=== PATIENT | male | born 1990 | race American Indian/Alaskan Native ===

== ENCOUNTER 2018-02-08 03:17 | Emergency (ER) | payer SELFPAY ==
[2018-02-08 04:08] LABS: Hematocrit 46.5 % (35.5-45.6); Hemoglobin 16.2 gm/dl (11.8-15.2); Mean Corpuscular HGB Conc 35 % (32-34); Mean Corpuscular Hemoglobin 32 pg (28-32); Mean Corpuscular Volume 90 fl (84-94); Platelet Count 251 K/mm3 (140-440); Red Blood Count 5.14 M/mm3 (3.65-5.03); Red Cell Distribution Width 14.1 % (13.2-15.2)
[2018-02-08 04:15] LABS: BUN/Creatinine Ratio 11; Blood Urea Nitrogen 10 mg/dL (9-20); Calcium 9.5 mg/dL (8.4-10.2); Hemolysis Index 7
[2018-02-08 04:48] LABS: Bilirubin,Urine NEG (Negative); Blood,Urine NEG (Negative); Color,Urine Amber (Yellow); Mucus,Urine 3+ /HPF
[2018-02-08 04:57] LABS: Amphetamine Screen,Urine PRESUMPTIVE NEGATIVE; Benzodiazepines Screen,Urine PRESUMPTIVE NEGATIVE; Cannabinoid Screen,Urine PRESUMPTIVE NEGATIVE; Cocaine Screen,Urine PRESUMPTIVE NEGATIVE; Methadone Screen,Urine PRESUMPTIVE NEGATIVE
[2018-02-08 05:08] LABS: Opiate Screen,Urine PRESUMPTIVE POSITIVE
[2018-02-08 05:30] LABS: Band Neutrophils # (Manual) 0.7 K/mm3; Basophils % (Manual) 0 % (0.0-1.8); Eosinophils % (Manual) 0 % (0.0-4.3); Total Cells Counted 100
[2018-02-08 05:31] LABS: Platelet Estimate Consistent w Auto; RBC Morphology Normal
[2018-02-08] MEDS ORDERED: NORCO 10/325 PO ONE (07:03)
--- NOTE | 2018-02-08 07:23 | Emergency Department Report ---
HPI - General Chief Complaint: Sore Throat Time Seen by Provider: 02/08/18 06:14 - HPI HPI: 27-year-old man complains of one to 2 day history of development of sore throat , with some nasal congestion, minimal feverishness. Headache is global, feels it's pressure and pounding, is quite severe, being 10 out of 10, patient declined immediate L for treatment for his headache during examination. He has not had any known exposures, does not currently work, lives with his mother, and declines any other significant source of fever or illness, including no cough or congestion, no abdominal pain, no skin rash, no difficulty urinating making, and no back pain. His neck is a little bit sore, but he feels like he can move it okay. Patient also has a secondary notation of seeing and hearing voices, and this is been going on for well over a year, but has not told anybody before, because his mother schizophrenic, and he thinks this might be happening to him as well. He has not had any prior mental health evaluation for schizophrenia, currently takes no medication for this. He feels relatively calm, does not feel confused or disoriented, and has no suicidal ideation or homicidal ideation , and does not feel voices or pressuring him to take any actions. ED Past Medical Hx - Past Medical History Previous Medical History?: No - Surgical History Past Surgical History?: No - Family History Family history: other (schizophrenia, mother) - Social History Smoking Status: Current Every Day Smoker Substance Use Type: None - Medications Home Medications: Home Medications Medication Instructions Recorded Confirmed Last Taken Type Azithromycin [Zithromax TAB] 250 mg PO QDAY #5 tablet 02/08/18 Unknown Rx HYDROcodone/ACETAMINOPHEN [[facility] 1 each PO Q4-6H #20 tablet 02/08/18 Unknown Rx 10-325 Tablet] ED Review of Systems ROS: Stated complaint: SORE THROAT Other details as noted in HPI Physical Exam - Physical Exam Vital Signs: Vital Signs 02/08/18 02/08/18 02/08/18 03:23 04:24 05:20 Temperature 98.7 F 98 F 98 F Pulse Rate 81 77 77 Respiratory 18 18 Rate Blood Pressure 133/83 Blood Pressure 134/77 132/77 [Left] O2 Sat by Pulse 97 100 Oximetry General: Generally healthy-appearing male, moves fairly easily, although in mild acute discomfort. Although afebrile. Physical Exam: GENERAL: Well-appearing, well-nourished and in no acute distress. HEAD: Atraumatic, normocephalic, there is some muscular tenderness to palpation in the frontal area bilaterally, with some radiation posteriorly along the temporal areas. EYES: Pupils equal round and reactive to light, extraocular movements intact, sclera anicteric, conjunctiva are normal. ENT: TMs normal, nares patent, airways patent oropharynx mildly erythematous without swelling and without exudates. Moist mucous membranes. NECK: There is mild resistance to movement, but there is otherwise normal range of motion in all directions, no definite stiffness, negative or made sign, mild anterior adenitis but without definite lymphadenopathy or JVD. LUNGS: Breath sounds clear to auscultation bilaterally and equal. No wheezes rales or rhonchi. HEART: Regular rate and rhythm without murmurs, rubs or gallops. ABDOMEN: Soft, nontender, normoactive bowel sounds. No guarding, no rebound. No masses appreciated. EXTREMITIES: Normal range of motion, no pitting or edema. No clubbing or cyanosis. NEUROLOGICAL: Cranial nerves II through XII grossly intact. Normal speech, normal gait. PSYCH: Normal mood, normal affect. SKIN: Warm, Dry, normal turgor, no rashes or lesions noted. ED Course Vital Signs 02/08/18 02/08/18 02/08/18 03:23 04:24 05:20 Temperature 98.7 F 98 F 98 F Pulse Rate 81 77 77 Respiratory 18 18 Rate Blood Pressure 133/83 Blood Pressure 134/77 132/77 [Left] O2 Sat by Pulse 97 100 Oximetry - Reevaluation(s) Reevaluation #1: 02/08/18 09:20 Patient is stable on repeat examination, CT scan is negative, and I discussed reasons for murmur condition for a lumbar puncture, with specific mention that I was concerned about the elevated white count, the persistent headache and the neck discomfort, and concern for meningitis. I also specifically pointed out that this was a potentially life-threatening complication if patient were to have meningitis, and that he could before he could get any adequate treatment if he were to leave without making this diagnosis. Despite my discussion of the risks and benefits, and my strong recommendation for the patient to have lumbar puncture, patient did not want to have lumbar puncture performed, despite acknowledging the risks that he was at increased risk for significant complications and deterioration including permanent disability or without timely treatment. Although patient has been having some hallucinations, he is calm, rational, clearly alert and oriented, and understands the concept that he can have detrimental consequences from not receiving treatment, and he has medical capacity to refuse this treatment. I offered injection of antibiotics as well, which he declined, and I will give him an empiric dose of antibiotics for sore throat coverage, but stressed to patient that this was in no way an adequate replacement or treatment substitute for meningitis or not having the lumbar puncture performed. ED Medical Decision Making - Lab Data Result diagrams: 02/08/18 03:39 02/08/18 03:39 - Radiology Data Radiology results: report reviewed Normal CT scan per radiology report - Medical Decision Making This patient has a primary complaint of pharyngitis, but he also has a significantly elevated white count, with a left shift with 3% bandemia on his lab report, and with a negative strep screen. He has good range of motion of the neck, but is somewhat stiff to movement, but generally in all directions, and he had persistence of headache even after treatment with analgesia. I have been concerned that patient could be at risk for meningitis, recommended lumbar puncture, but which he steadfastly refuses, even after expression of likelihood of significant complications, were there to be an undiagnosed meningitis present. Nonetheless, patient still is adamant about refusing any lumbar procedures, prefers to go home, but will accept an oral antibody prescription, for sore throat, which I stress was not an acceptable alternative for possible meningitis. He does not have a family physician, and I strongly encouraged him to have 48-72 hour recheck, even if he needs to return to the emergency department to do so. - Differential Diagnosis upper respiratory infection, strep pharyngitis, viral syndrome, meningitis Critical Care Time: No Critical care attestation.: If time is entered above; I have spent that time in minutes in the direct care of this critically ill patient, excluding procedure time. ED Disposition Clinical Impression: Neck ache Pharyngitis Qualifiers: Pharyngitis/tonsillitis etiology: unspecified etiology Qualified Code(s): J02.9 - Acute pharyngitis, unspecified Disposition: LEFT AGAINST MED ADVICE Is pt being admited?: No Does the pt Need Aspirin: No Condition: Stable Instructions: Upper Respiratory Infection (ED), Acute Headache (ED) Additional Instructions: Diagnosis: Headache, sore throat, elevated white count, neck ache You have a sore throat, but we are also concerned that there is a more serious illness, which could include meningitis, and have recommended a lumbar puncture to be sure there is not meningitis. You have declined to do so, and we are discharging you AGAINST MEDICAL ADVICE for this reason. We're covering her with antibiotics, azithromycin, for the sore throat, but this is not a substitute for any other infection, and does not treat meningitis in any form. We recommend that you have lumbar puncture, but he may return any time to have this done. We also recommend that you have 48-72 hour follow-up with your primary care doctor, and you should obtain one if he do not have one. Take hydrocodone for pain, rest, and take ibuprofen for discomfort. Return any time for repeat examination if you feel worse, and we will do a lumbar puncture at that time. Prescriptions: Azithromycin [Zithromax TAB] 250 mg PO QDAY #5 tablet HYDROcodone/ACETAMINOPHEN [[place] 10-325 Tablet] 1 each PO Q4-6H #20 tablet Referrals: PRIMARY CARE, [Primary Care Provider] - 3-5 Days Forms: AMA Form Time of Disposition: 09:27
--- NOTE | 2018-02-08 07:35 | Cat Scan Report ---
CT HEAD WITHOUT CONTRAST: HISTORY: Headache, fever. TECHNIQUE: Sequential 2.5mm CT images. COMPARISON: none. FINDINGS: Cerebral Parenchyma: Within normal limits. Cerebellum: Within normal limits. Brainstem: Within normal limits. Ventricles: Normal. Sella: Normal. Extra-axial spaces: Normal. Basal Cisterns: Normal. Intracranial Hemorrhage: None. Midline Shift: None. Calvarium: Normal. Sinuses: Normal. Mastoid Air Cells: Normal. Visualized Orbits: Normal. IMPRESSION: Cranial CT scan within normal limits.
[2018-02-08 08:25] VITALS: BP 108/57
[2018-02-08] MEDS ORDERED: ZITHROMAX PO ONE (09:30)
== END 2018-02-08 10:11 | disposition left against medical advice (07) ==
LOC: ED 03:17
DX: M54.2 Cervicalgia (principal); J02.9 Acute pharyngitis, unspecified; F17.200 Nicotine dependence, unspecified, uncomplicated; F20.9 Schizophrenia, unspecified
CPT/HCPCS: 36415; 70450; 80048; 80307; 81001; 82140; 85007; 85025; 87040; 87116; 87430; 99284; G0480; 80320